=== PATIENT | female | born 1960 | race Caucasian/White ===

== ENCOUNTER 2020-02-29 11:15 | Emergency (ER) | payer MEDICAID, SELFPAY ==
[2020-02-29 11:23] VITALS: BP 162/101; PULSE 85; RESP 14; TEMP 36.3; O2SAT 96; BMI 22.1
--- NOTE | 2020-02-29 11:26 | XRR_ITS ---
PROCEDURE INFORMATION: Exam: XR Right Ankle Exam date and time: 02/29/2020 11:27 AM Age: 59 years old Clinical indication: Injury or trauma; Fall; Initial encounter; Blunt trauma; Foot; Right TECHNIQUE: Imaging protocol: XR Right ankle. Views: 3 or more views. COMPARISON: No relevant prior studies available. FINDINGS: Bones/joints: No acute fracture of the right ankle. No dislocation. Displaced distal 3rd metatarsal fracture. Soft tissues: Unremarkable. XR/XR ankle RT min 3V* [id number] IMPRESSION: No fracture of right ankle.
--- NOTE | 2020-02-29 11:26 | XRR_ITS ---
PROCEDURE INFORMATION: Exam: XR Right Foot Complete Exam date and time: 02/29/2020 11:27 AM Age: 59 years old Clinical indication: Injury or trauma; Fall; Initial encounter; Blunt trauma; Ankle; Right TECHNIQUE: Imaging protocol: XR Right foot. Views: 3 or more views. COMPARISON: No relevant prior studies available. FINDINGS: Bones/joints: Acute displaced distal 3rd metatarsal fracture. Soft tissues: Dorsal soft tissue edema. XR/XR foot RT min 3V* [id number] IMPRESSION: Acute displaced distal 3rd metatarsal fracture.
--- NOTE | 2020-02-29 11:38 | W.ED.EXTPRO ---
HPI - Extremity Problem General: Chief complaint: Extremity Injury, Lower Stated complaint: fall Time Seen by Provider: 02/29/20 11:26 Source: patient Mode of arrival: ambulatory Limitations: no limitations History of Present Illness: HPI Narrative: 59-year-old female who fell down a few stairs 2 days ago. She states she injured her right foot and has had pain to her forefoot since then. She states it is extremely painful to try to place any weight on her foot. Denies hitting her head. She states her pain is improved with rest. States pain currently sharp in nature and rates it a 3 out of 10. MD Complaint: extremity pain Onset (ago): day(s) Associated symptoms: Deny chest pain, fever(s) or rash Review of Systems Const: Denies: fever(s), chills, body aches or change in appetite Eyes: Denies: blurry vision or eye discomfort ENMT: Denies: throat pain or dental pain Card: Denies: chest pain Resp: Denies: dyspnea GI: Denies: abdominal pain, nausea, vomiting or diarrhea : Denies: dysuria Musc: Reports: extremity pain Skin/Breast: Denies: rash Neuro: Denies: headache(s) Psych: Denies: depression [place]/Lymph: Denies: easy bruising All/Imm: Denies: urticaria Physical Exam Const: COMMON NORMALS: no acute distress, patient oriented x3 and healthy appearing HENMT: COMMON NORMALS: normocephalic and atraumatic HEAD & SCALP: normocephalic and atraumatic Eye: COMMON NORMALS: Equal, round and reactive pupils present and EOMs intact bilaterally PUPIL: Yes Equal, round and reactive pupils present Neck/C-Spine: COMMON NORMALS: full ROM and supple Chest: COMMONS NORMALS: normal inspection of the chest and normal palpation of entire chest wall Resp: COMMON NORMALS: normal respiratory effort, No retractions, No use of accessory muscles and clear to auscultation bilaterally AUSCULTATION: clear to auscultation bilaterally Cardio: COMMON NORMALS: regular rate, regular rhythm and No murmurs present (Cardio) RATE: regular rate RHYTHM: regular rhythm GI: COMMON NORMALS: Normal to inspection, nondistended, normoactive bowel sounds present, Soft to palpation, non-tender and no masses PALPATION: Yes Soft to palpation Extremity: COMMON NORMALS: full ROM NARRATIVE EXTREMITY EXAM: tenderness over dorsum of right foot Neuro: COMMON NORMALS: patient oriented x3, moves all extremities and no focal motor deficits Psych: COMMON NORMALS: mental status grossly normal, Normal thought process present and cooperative THOUGHT PROCESS: Normal thought process present Skin: COMMON NORMALS: no rashes or lesions noted and no wounds GENERAL SKIN EXAM: no rashes or lesions noted Course Vital Signs: Vital signs: Vital Signs Temperature 97.3 F L 02/29/20 11:23 Pulse Rate 85 02/29/20 11:23 Respiratory Rate 14 02/29/20 11:23 Blood Pressure 162/101 02/29/20 11:23 Pulse Oximetry 96 02/29/20 11:23 MDM - Extremity (Nontraumatic) MDM Narrative: Medical decision making narrative: Nadine presents here with foot fracture from a fall. Patient placed in a splint along with crutches and she is to follow-up with Dr. Acosta. Patient is stable for discharge and is to return if worsening. Imaging Data^: xr foot: My impression: third metatarsal fx Discharge Plan Discharge Patient Disposition: Home Clinical Impression: Foot fracture, right Qualifiers: Encounter type: initial encounter Fracture type: closed Qualified Code(s): S92.901A - Unspecified fracture of right foot, initial encounter for closed fracture Condition: Stable Prescriptions: [place] 5-325 mg tablet 1 tab PO Q6H PRN (Reason: pain) Qty: 14 RF: 0 Discharge Orders: Discharge Order (Routine); Ordered 02/29/20 Ordered By: Antonette Marvin Referrals: Fernando Acosta DPM [Physician] - 1-3 days Discharge Diet: Advance as tolerated Discharge Activity: Resume usual activity Patient Instructions: Foot Fracture in Adults (ED) Coding Level of Care Code ED Regional Production Manager for Chg Fwd Exam Comprehensive
[2020-02-29] MEDS: HYDROcodone-acetaminophen 5-325 mg Tablet 1 TAB PO (11:41)
[2020-02-29 13:50] VITALS: BP 132/97; PULSE 70; RESP 14; O2SAT 97
--- NOTE | 2020-03-02 09:26 | DCPLANNER ---
manager casino had message to schedule a follow up appointment for patient with ortho. manager casino called the ortho clinic, spoke with Grisel, gave clinic patients information. manager casino was told that patients information would be printed and reviewed. Clinic will call patient with appointment information.
--- NOTE | 2020-03-03 08:17 | DCPLANNER ---
Patient had a follow up appointment scheduled for 03.02.[address] Acosta at [facility] - patient did attend the appointment.
== END 2020-02-29 13:51 | disposition home or self-care (01) ==
LOC: ER 12:05
PROVIDERS: Emergency Provider Emergency Medicine
DX: S92.331A Displaced fracture of third metatarsal bone, right foot, initial encounter for closed fracture (principal); W10.8XXA Fall (on) (from) other stairs and steps, initial encounter
CPT/HCPCS: 12345; 29515; 73610; 73630; 99281; 99283; E0114

== ENCOUNTER 2020-03-02 15:33 | Outpatient (CLI) | payer MEDICAID, SELFPAY | END 2020-03-02 15:34 | disposition home or self-care (01) | LOC: SPT 15:35 | PROVIDERS: Visit Provider Podiatrist Foot & Ankle Surgery | DX: Z46.89 Encounter for fitting and adjustment of other specified devices (principal); S92.331D Displaced fracture of third metatarsal bone, right foot, subsequent encounter for fracture with routine healing; X58.XXXD Exposure to other specified factors, subsequent encounter | CPT/HCPCS: 97760; L4361 ==

== ENCOUNTER → 2020-03-16 15:34 | Outpatient (BNVA) | payer MEDICAID, SELFPAY | PROVIDERS: Visit Provider Podiatrist Foot & Ankle Surgery | DX: S92.344D Nondisplaced fracture of fourth metatarsal bone, right foot, subsequent encounter for fracture with routine healing (principal); S92.334D Nondisplaced fracture of third metatarsal bone, right foot, subsequent encounter for fracture with routine healing; W10.8XXD Fall (on) (from) other stairs and steps, subsequent encounter | CPT/HCPCS: 73630 ==

== ENCOUNTER → 2020-03-31 14:07 | Outpatient (BNVA) | payer MEDICAID, SELFPAY | PROVIDERS: Visit Provider Podiatrist Foot & Ankle Surgery | DX: S92.344A Nondisplaced fracture of fourth metatarsal bone, right foot, initial encounter for closed fracture (principal); W19.XXXA Unspecified fall, initial encounter | CPT/HCPCS: 73630 ==

== ENCOUNTER → 2020-04-22 14:11 | Outpatient (BNVA) | payer MEDICAID, SELFPAY | PROVIDERS: Visit Provider Podiatrist Foot & Ankle Surgery | DX: S92.344A Nondisplaced fracture of fourth metatarsal bone, right foot, initial encounter for closed fracture (principal); X58.XXXA Exposure to other specified factors, initial encounter | CPT/HCPCS: 73630 ==